=== PATIENT | female | born 1990 | race Hispanic/Latino ===

== ENCOUNTER 2022-08-22 17:05 | Emergency (ER) | payer OTHER, SELFPAY ==
[2022-08-22 17:14] VITALS: BP 120/63; PULSE 69; RESP 16; TEMP 37.2; O2SAT 99
--- NOTE | 2022-08-22 17:21 | ED.EXTPRO ---
HPI - Extremity Problem General Chief complaint: Extremity Problem,Nontraumatic Stated complaint: Right Arm Pain Time Seen by Provider: 08/22/22 17:20 Source: patient Mode of arrival: ambulatory Limitations: no limitations History of Present Illness HPI Narrative: 31-year-old female presented for complaint of right elbow pain for 2 months. She states the pain was only occurring after work, but for the last 2 days she has had constant pain. Unable to sleep at night due to the pain. Pain is from elbow to hand with tingling in fingers. Denies known injury. 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 Taking Tylenol, ibuprofen, and using icy Hot without relief. She is scheduled with pcp in 5 days. Related Data Allergies Allergy/AdvReac Type Severity Reaction Status Date / Time No Known Allergies Allergy Verified 08/22/22 17:15 Review of Systems Review of Systems: CONSTITUTIONAL: Denies body aches, fever, chills EYES: Denies visual changes ENT: Denies rhinorrhea, congestion CARDIOVASCULAR: Denies chest pain, palpitations, or edema. RESPIRATORY: Denies cough or dyspnea. GASTROINTESTINAL: Denies abdominal pain, nausea, vomiting, or diarrhea. SKIN: Denies rash, itching, or wounds. MUSCULOSKELETAL: per HPI NEUROLOGIC: Denies headache All systems reviewed & are unremarkable except as noted in HPI and below PMFSH Past Medical History Medical History (Updated 08/22/22 @ 17:34 by La Nena Ryder, [employer]) No pertinent past medical history Comments At time of signature, I have reviewed and agree with nursing past medical, surgical, social and family history unless otherwise noted. Please see nursing chart for further information. There is no relevant family history pertinent to the presenting complaint Exam Narrative: GENERAL: Well-appearing EYES: PERRLA, conjunctivae clear NECK: Supple. CHEST: Speaks in full sentences. No respiratory distress. HEART: Regular rate and rhythm. Normal and equal peripheral pulses. EXTREMITIES: Right UE has normal strength and sensation, normal range of motion without pain with movement. No edema or ecchymosis, No point tenderness. No open wounds, or obvious deformity; alignment normal, pulse palpable and equal bilaterally, skin warm, dry, pink. Capillary refill less than 3 seconds. SKIN: Warm, dry, no rash. NEURO: Alert and oriented x3. PSYCH: Normal mood and affect Course Course Emergency Course: Patient is aware of diagnosis, understands and agrees to treatment plan. Anticipatory guidance given. Patient agrees to follow-up as directed and is aware of reasons to seek care at the emergency department. Portions of this record may have been created with voice recognition software Level of Care: Express Care Visit Vital Signs Vital signs: Vital Signs Temperature 98.9 F 08/22/22 17:14 Pulse Rate 69 08/22/22 17:14 Respiratory Rate 16 08/22/22 17:14 Blood Pressure 120/63 08/22/22 17:14 Pulse Oximetry 99 08/22/22 17:14 Oxygen Delivery Room Air 08/22/22 17:14 Temperature 98.9 F 08/22/22 17:14 Pulse Rate 69 08/22/22 17:14 Respiratory Rate 16 08/22/22 17:14 Blood Pressure 120/63 08/22/22 17:14 Pulse Oximetry 99 08/22/22 17:14 Oxygen Delivery Room Air 08/22/22 17:14 Reviewed MDM - Extremity (Nontraumatic) MDM Narrative Medical decision making narrative: Results of physical exam findings reviewed with patient. Advised supportive measures and signs/symptoms to go to the ER. Pt is appropriate for outpt treatment and f/u as scheduled next week. Differential Diagnosis Differential diagnosis: Likely other (Tendinitis, arthritis, radiculopathy) Discharge Plan Discharge Clinical Impression: Arm pain, right Patient Disposition: Home, Self-Care Condition: Stable Instructions: Paresthesia (ED), Tendinitis (ED) Additional Instructions: Rest and elevate the right arm; activity as tolerated Apply ice 15-2
== END 2022-08-22 17:38 | disposition home or self-care (01) ==
PROVIDERS: Emergency Provider Nurse Practitioner Family; PCP Registered Nurse
DX: M79.631 Pain in right forearm (principal)
CPT/HCPCS: 99213; G0463

== ENCOUNTER 2022-10-09 09:16 | Outpatient (CLI) | payer OTHER, SELFPAY ==
--- NOTE | 2022-10-09 11:00 | NEURO_ITS ---
Impression: # Complains of right hand paresthesia. # Right sensory moderate Carpal Tunnel Syndrome. # Normal needle/EMG exam. Nerve Conduction Studies Anti Sensory Summary Table Stim Site NR Peak (ms) P-T Amp (?V) Site1 Site2 Delta-P (ms) Dist (cm) Kj (m/s) Left Median Anti Sensory (2-3nd Digit) Wrist 2.7 94.5 Wrist 2-3nd Digit 2.7 14.0 52 Wrist 2.7 79.5 Wrist 2-3nd Digit 2.7 14.0 52 Right Median Anti Sensory (2-3nd Digit) Wrist 5.5 12.6 Wrist 2-3nd Digit 5.5 14.0 25 Wrist 6.0 13.0 Wrist 2-3nd Digit 5.5 14.0 25 Left Radial Anti Sensory (Base 1st Digit) Wrist 1.8 67.4 Wrist Base 1st Digit 1.8 0.0 Right Radial Anti Sensory (Base 1st Digit) Wrist 2.2 46.8 Wrist Base 1st Digit 2.2 0.0 Left Ulnar Anti Sensory (5th Digit) Wrist 2.2 77.9 Wrist 5th Digit 2.2 14.0 64 Right Ulnar Anti Sensory (5th Digit) Wrist 2.5 80.1 Wrist 5th Digit 2.5 14.0 56 Motor Summary Table Stim Site NR Onset (ms) O-P Amp (mV) Site1 Site2 Delta-0 (ms) Dist (cm) Kj (m/s) Left Median Motor (Abd Poll Brev) Wrist 2.6 3.3 Elbow Wrist 5.0 29.0 58 Elbow 7.6 5.5 Right Median Motor (Abd Poll Brev) Wrist 2.9 4.4 Elbow Wrist 4.8 27.0 56 Elbow 7.7 2.3 Left Ulnar Motor (Abd Dig Minimi) Wrist 2.7 9.1 A Elbow Wrist 5.0 29.0 58 A Elbow 7.7 8.6 Right Ulnar Motor (Abd Dig Minimi) Wrist 3.0 7.5 A Elbow Wrist 4.7 27.0 57 A Elbow 7.7 6.6 F Wave Studies NR F-Lat (ms) L-R F-Lat (ms) Left Median (Mrkrs) (Abd Poll Brev) 24.45 1.03 Right Median (Mrkrs) (Abd Poll Brev) 25.49 1.03 Left Ulnar (Mrkrs) (Abd Dig Min) 25.04 1.23 Right Ulnar (Mrkrs) (Abd Dig Min) 23.81 1.23 EMG Side Muscle Nerve Root Ins Act Fibs Amp Dur Recrt Comment Right 1stDorInt Ulnar C8-T1 Nml Nml Nml Nml Nml Right Ext Indicis Radial (Post Int) C7-8 Nml Nml Nml Nml Nml Right Ext Digitorum Radial (Post Int) C7-8 Nml Nml Nml Nml Nml Right BrachioRad Radial C5-6 Nml Nml Nml Nml Nml Right PronatorTeres Median C6-7 Nml Nml Nml Nml Nml Right Abd Poll Brev Median C8-T1 Nml Nml Nml Nml Nml Left 1stDorInt Ulnar C8-T1 Nml Nml Nml Nml Nml Left Ext Indicis Radial (Post Int) C7-8 Nml Nml Nml Nml Nml Left Ext Digitorum Radial (Post Int) C7-8 Nml Nml Nml Nml Nml Left BrachioRad Radial C5-6 Nml Nml Nml Nml Nml Left PronatorTeres Median C6-7 Nml Nml Nml Nml Nml Left Abd Poll Brev Median C8-T1 Nml Nml Nml Nml Nml MTDD
== END 2022-10-09 09:17 | disposition home or self-care (01) ==
PROVIDERS: PCP Registered Nurse; Visit Provider Registered Nurse
DX: R20.2 Paresthesia of skin (principal); G56.01 Carpal tunnel syndrome, right upper limb
CPT/HCPCS: 95886; 95911